=== PATIENT | male | born 1985 | race Caucasian/White ===

== ENCOUNTER 2023-04-04 05:33 | Day surgery (SDC) | payer OTHER ==
[2023-04-03 09:50] VITALS: BMI 35.2
[2023-04-04 06:36] LABS: #Eosinphils 0.1 thou/uL (0.0-0.7); #Monocytes 0.5 thou/uL (0.11-0.59); #Neutrophils 2.3 thou/uL (1.40-6.50); %Basophils 0.8 % (0.0-1.0); %Eosinophils 2.9 % (0.0-10.0); %Monocytes 9.8 % (0.0-10.0); %Neutrophils 49.1 % (42.0-75.0); Hemoglobin 13.6 g/dL (14.0-18.0); Mean Corpuscular Hemoglobin 28.5 pg (27.0-31.0); Mean Corpuscular Volume 83.9 fl (78.0-98.0); Mean Platelet Volume 9.6 fL (7.4-10.4); Platelet Count 245 10x3/uL (130-400); RBC Distribution Width 13.4 % (11.5-14.5); Red Blood Cell (RBC) Count 4.77 mill/uL (4.70-6.10); White Blood Cell (WBC) Count 4.8 10x3/uL (4.8-10.8)
[2023-04-04 06:40] LABS: Manual Diff?? YES
[2023-04-04 07:04] LABS: CellaVision Operator ID LAB.GE; Platelet Morphology Comment Platelets Normal
[2023-04-04 07:12] LABS: Anion Gap 15 mmol/L (10-20); BUN (Urea Nitrogen) 7 mg/dL (8.9-20.6); Calc. Creatinine Clearance 219 mL/min (70-130); Calcium 9.3 mg/dL (7.8-10.44); Carbon Dioxide 22 mmol/L (22-29); Chloride 103 mmol/L (98-107); Estimated GFR 118; Glucose 118 mg/dL (70-105); Potassium 4.1 mmol/L (3.5-5.1); Sodium 136 mmol/L (136-145)
[2023-04-04] MEDS ORDERED: Bupivacaine HCl 0.5%/Epinephrine 1:200,000/PF 30 ml Vial ONE (07:37)
[2023-04-04] MEDS ORDERED: Midazolam HCl 2 mg/2 ml Vial ONE (08:27)
[2023-04-04] MEDS ORDERED: fentaNYL PF 100 MCG/2 ML SYRINGE ONE ×3 (08:30→12:07)
[2023-04-04] MEDS ORDERED: Sodium Chloride 0.9% 100 ML ONE ×2 (08:38→13:30)
[2023-04-04] MEDS ORDERED: CEFAZOLIN 2 GM VIAL ONE ×2 (08:38→13:30)
[2023-04-04] MEDS ORDERED: NEOSTIGMINE 3 MG/3 ML SYR 3 MG/3 ML SYRINGE ONE (08:47)
[2023-04-04] MEDS ORDERED: PHENYLEPHRINE-NS 100 MCG/ML 10 ML SYRINGE ONE (08:47)
[2023-04-04] MEDS ORDERED: Dexamethasone 20 MG/5 ML VIAL ONE (08:47)
[2023-04-04] MEDS ORDERED: PROPOFOL 200 MG/20 ML VIAL ONE (08:47)
[2023-04-04] MEDS ORDERED: Albuterol HFA (OR) 200 PUFF INH ONE (08:47)
[2023-04-04] MEDS ORDERED: Rocuronium Bromide 10 MG/ML (10ML VIAL) ONE (08:47)
[2023-04-04] MEDS ORDERED: GLYCOPYRROLATE/PF 0.2 MG/ML VIAL ONE (08:47)
[2023-04-04] MEDS ORDERED: Ondansetron PF 4 MG/2 ML Vial ONE (08:47)
[2023-04-04] MEDS ORDERED: Lidocaine 1% PF 5 ML VIAL ONE (08:47)
[2023-04-04] MEDS ORDERED: Dexmedetomidine 200 MCG/2 ML VIAL ONE (09:10)
[2023-04-04] MEDS ORDERED: SUGAMMADEX SODIUM 200 MG/2 ML VIAL ONE (09:56)
[2023-04-04] MEDS ORDERED: Labetalol HCl 100 MG/20 ML VIAL ONE (10:30)
[2023-04-04] MEDS ORDERED: Tamsulosin HCl 0.4 MG CAP ONE (10:36)
[2023-04-04] MEDS ORDERED: Morphine 4 MG/ML VIAL ONE (11:06)
[2023-04-04] MEDS ORDERED: Morphine 2 MG/ML VIAL ONE ×3 (11:52→12:33)
[2023-04-04] MEDS ORDERED: HYDROcodone/Acetaminophen 5/325 mg Tablet ONE (13:08)
== END 2023-04-04 14:20 | disposition home or self-care (01) ==
LOC: SDC 05:33
PROVIDERS: ATTEND Neurological Surgery
PROC: 01NB0ZZ Release Lumbar Nerve, Open Approach (ICD-10-PCS; principal; 2023-04-04)
DX: M51.16 Intervertebral disc disorders with radiculopathy, lumbar region (principal); I10 Essential (primary) hypertension; I35.0 Nonrheumatic aortic (valve) stenosis; E03.9 Hypothyroidism, unspecified; F17.290 Nicotine dependence, other tobacco product, uncomplicated; E78.5 Hyperlipidemia, unspecified; G89.29 Other chronic pain; M19.90 Unspecified osteoarthritis, unspecified site; E66.9 Obesity, unspecified; Z68.35 Body mass index [BMI] 35.0-35.9, adult; Z79.899 Other long term (current) drug therapy
CPT/HCPCS: 80048; 85025; J1100; J2250; J2270; J2272; J2405; J2704; J3490